=== PATIENT | male | born 1955 | race Hispanic/Latino ===

== ENCOUNTER 2017-01-10 12:13 | Emergency (ER) | payer SELFPAY ==
[2017-01-10 13:44] LABS: Bacteria,Urine 3+ /HPF (Negative); Bilirubin,Urine NEG (Negative); Blood,Urine MOD (Negative); Ketones,Urine NEG (Negative); Leukocyte Esterase,Urine SM (Negative); Mucus,Urine FEW /HPF; Nitrite,Urine NEG (Negative); Urobilinogen,Urine < 2.0 mg/dL (<2.0)
--- NOTE | 2017-01-10 17:02 | Emergency Department Report ---
ED General Adult HPI - General Chief complaint: Urogenital-Male Stated complaint: [facility] Time Seen by Provider: 01/10/17 15:38 Source: patient Mode of arrival: Stretcher Limitations: No Limitations - History of Present Illness Initial comments: Patient was apparently diagnosed with bladder outlet obstruction secondary to an enlarged prostate 5 days ago. He had an indwelling catheter placed by urologist in [place]. He states he is supposed to wear the catheter for 2 weeks and then return for reevaluation. He states he has some discomfort and itching about the catheter of the head of the penis. He has not seen any discharge. He denies fever or chills. He does not have abdominal pain. The patient is admitted to [facility] for treatment of depression. He states he is diabetic. -: days(s) Associated Symptoms: denies other symptoms - Related Data Previous Rx's Medication Instructions Recorded Last Taken Type Fluconazole [Diflucan TAB] 100 mg PO QDAY #7 tablet 01/10/17 Unknown Rx Nitrofurantoin Mclennan/M-Cryst 100 mg PO Q12HR #10 capsule 01/10/17 Unknown Rx [Macrobid CAP] Allergies Allergy/AdvReac Type Severity Reaction Status Date / Time No Known Allergies Allergy Unverified 01/10/17 13:07 ED Review of Systems ROS: Stated complaint: [facility] Other details as noted in HPI Constitutional: denies: chills, fever Eyes: denies: eye pain, eye discharge, vision change ENT: denies: ear pain, throat pain Respiratory: denies: cough, shortness of breath, wheezing Cardiovascular: denies: chest pain, palpitations Endocrine: no symptoms reported Gastrointestinal: denies: abdominal pain, nausea, diarrhea Genitourinary: as per HPI. denies: urgency, dysuria Musculoskeletal: denies: back pain, joint swelling, arthralgia Skin: denies: rash, lesions Neurological: denies: headache, weakness, paresthesias Psychiatric: denies: anxiety, depression Hematological/Lymphatic: denies: easy bleeding, easy bruising ED Past Medical Hx - Past Medical History Hx Hypertension: Yes Hx Diabetes: Yes Hx COPD: Yes Additional medical history: enlarged prostate - Surgical History Past Surgical History?: No - Social History Smoking Status: Current Every Day Smoker Substance Use Type: None - Medications Home Medications: Home Medications Medication Instructions Recorded Confirmed Last Taken Type Fluconazole [Diflucan TAB] 100 mg PO QDAY #7 tablet 01/10/17 Unknown Rx Nitrofurantoin Mclennan/M-Cryst 100 mg PO Q12HR #10 capsule 01/10/17 Unknown Rx [Macrobid CAP] ED Physical Exam - General Limitations: No Limitations General appearance: alert, in no apparent distress - Head Head exam: Present: atraumatic, normocephalic - Eye Eye exam: Present: normal appearance. Absent: scleral icterus - ENT ENT exam: Present: mucous membranes moist - Neck Neck exam: Present: normal inspection - Respiratory Respiratory exam: Present: normal lung sounds bilaterally. Absent: respiratory distress - Cardiovascular Cardiovascular Exam: Present: regular rate, normal rhythm. Absent: systolic murmur, diastolic murmur, rubs, gallop - GI/Abdominal GI/Abdominal exam: Present: soft, normal bowel sounds. Absent: distended, tenderness, guarding, rebound, rigid - Rectal Rectal exam: Present: deferred - exam: Present: other (the Hobbs catheter is indwelling. There is no discharge. The glans to have a monilial type appearance and erythema. There is no swelling. Exam is otherwise unremarkable. ). Absent: testicular tenderness, urethral discharge, scrotal swelling, vertical testicular lie, circumcision - Extremities Exam Extremities exam: Present: normal inspection - Back Exam Back exam: Present: normal inspection - Neurological Exam Neurological exam: Present: alert, oriented X3, CN II-XII intact. Absent: motor sensory deficit - Psychiatric Psychiatric exam: Present: normal affect, normal mood - Skin Skin exam: Present: warm, dry, intact, normal color. Absent: rash ED Course Vital Signs 01/10/17 13:00 Temperature 98.0 F Pulse Rate 83 Blood Pressure 117/80 O2 Sat by Pulse 98 Oximetry - Reevaluation(s) Reevaluation #1: An Accu-Chek was obtained and found to be 70. The patient is appropriate for outpatient management. A urine culture was sent. He'll be placed on Diflucan and Macrodantin. 01/10/17 17:05 Critical care attestation.: If time is entered above; I have spent that time in minutes in the direct care of this critically ill patient, excluding procedure time. ED Disposition Clinical Impression: Monilia of penis UTI (urinary tract infection) Qualifiers: Urinary tract infection type: site unspecified Hematuria presence: without hematuria Qualified Code(s): N39.0 - Urinary tract infection, site not specified Disposition: DISCHARGED TO HOME OR SELFCARE Is pt being admited?: No Does the pt Need Aspirin: No Condition: Stable Instructions: Urinary Tract Infection in Men (ED) Additional Instructions: Follow-up on your urine culture. Follow-up with your urologist. Return any acute change or problem. Prescriptions: Fluconazole [Diflucan TAB] 100 mg PO QDAY #7 tablet Nitrofurantoin Mclennan/M-Cryst [Macrobid CAP] 100 mg PO Q12HR #10 capsule Referrals: PRIMARY CARE, [Primary Care Provider] - 3-5 Days Time of Disposition: 17:09
[2017-01-10] MEDS ORDERED: DIFLUCAN PO ONE (17:05)
[2017-01-10 18:49] VITALS: BP 119/78
== END 2017-01-10 18:32 | disposition home or self-care (01) ==
LOC: ED 12:13
DX: N48.89 Other specified disorders of penis (principal); B37.49 Other urogenital candidiasis; N39.0 Urinary tract infection, site not specified; F17.200 Nicotine dependence, unspecified, uncomplicated; E11.9 Type 2 diabetes mellitus without complications; I10 Essential (primary) hypertension; J44.9 Chronic obstructive pulmonary disease, unspecified; N40.0 Benign prostatic hyperplasia without lower urinary tract symptoms
CPT/HCPCS: 81001; 82962; 87076; 87086; 87186; 99284